=== PATIENT | female | born 1975 | race Caucasian/White ===

== ENCOUNTER 2020-01-23 15:23 | Emergency (ER) | payer MEDICAID, SELFPAY ==
--- NOTE | ~2020-01-23 | CT_ITS ---
EXAMINATION: CTA chest PE protocol EXAM DATE: 01/23/2020 18:12 INDICATION: Shortness of breath, elevated d-dimer. Chest pain. TECHNIQUE: Spiral CTA of the chest (pulmonary arteries) was performed with 100 cc Omnipaque 350 intr avenous contrast injection. Images were acquired during the pulmonary arterial phase. Coronal maxi mum intensity projection 3D-reconstructions were created by the technologist on dedicated workstation . Axial, coronal and sagittal reformatted images were reviewed. The dose-length product (DLP) for t his examination was 451.72 mGy-cm. The exposure was tailored according to patient size (auto mA exp osure control), and iterative reconstruction (ASIR) was used as additional dose reduction technique. There is no prior study for comparison. FINDINGS: Pulmonary arteries are well opacified and without intraluminal filling defects. No thora cic aortic dissection. The lungs are clear. There are no pleural or pericardial effusions. Trach eobronchial tree is patent. There is no mediastinal, hilar or axillary lymphadenopathy. There is no pneumothorax. Heart normal in size. There is mild coronary arterial calcification, arterial sc lerosis. Splenic granulomata. Breast implants. There is mild thoracic spondylosis without osteoblas tic or osteolytic lesions identified. IMPRESSION: 1. No pulmonary emboli or acute cardiopulmonary findings. Reviewed, dictated and finalized at location A.
--- NOTE | ~2020-01-23 | XR_ITS ---
EXAMINATION: XR chest 1V portable INDICATION: Shortness of breath and cough TECHNIQUE: Portable AP chest at 1618 hours COMPARISON: None available FINDINGS: The lungs are free of acute opacities. There is no pleural effusion or pneumothorax. The ca rdiomediastinal silhouette is normal. Punctate left upper quadrant calcifications likely reflect heal ed granulomatous disease of the spleen. IMPRESSION: 1. No acute cardiopulmonary abnormality. Reviewed, dictated and finalized at location A.
[2020-01-23 15:31] VITALS: BP 121/85; PULSE 102; RESP 20; TEMP 36.7; O2SAT 99
--- NOTE | 2020-01-23 16:48 | ECG_ITS ---
Measurements Intervals [place] Rate: 91 P: 44 TN: 145 QRS: 50 QRSD: 84 T: 50 QT: 340 QTc: 420 Interpretive Statements SINUS RHYTHM BASELINE ARTIFACT- III NORMAL ECG Electronically Signed On 01-23-2020 19:46:32 CDT by Donald Hawkins D.O.
[2020-01-23 16:49] LABS: Basophils Percent Auto 0.4 % (0.2-1.2); Eosinophils Absolute Auto 0.1 K/mm3 (0-0.3); Eosinophils Percent Auto 1.5 % (0-4.4); Hematocrit 41.3 % (37.0-47.0); Hemoglobin 13.9 g/dL (12.0-15.0); Immature Granulocyte Absolute 0.02 K/mm3 (0.00-0.031); Immature Granulocyte Percent A 0.4 % (0-0.5); Mean Corpuscular HGB Conc 33.7 g/dl (32-36); Mean Corpuscular Hemoglobin 30.4 pg (26-34); Mean Corpuscular Volume 90.4 fl (80-100); Mean Platelet Volume 9.4 fl (7.4-10.4); Monocytes Absolute Auto 0.6 K/mm3 (0.1-0.6); Monocytes Percent Auto 11.4 % (2.6-8.5); Neutrophils Absolute Auto 3.2 K/mm3 (1.3-6.7); Neutrophils Percent Auto 61.3 % (45.5-73.1); Platelet Count Result 177 k/mm3 (150-375); Red Blood Count 4.57 M/mm3 (4.2-5.4); Red Cell Distribution Width 12.8 % (11.5-14.5); White Blood Count 5.2 K/mm3 (4.5-10.0)
[2020-01-23 17:01] LABS: Lactic Acid Reflex 0.8 mmol/L (0.7-2.1)
[2020-01-23] MEDS: SODIUM CHLORIDE 0.9% IV 1,000 ML 999 ML IV CONT (17:07)
[2020-01-23 17:09] VITALS: BP 104/65; PULSE 88; RESP 16; O2SAT 95
[2020-01-23 17:21] LABS: D Dimer 2.59 ug/mL (<0.48)
--- NOTE | 2020-01-23 17:21 | ED.URI ---
HPI - URI/Sore Throat General Chief Complaint: Upper Respiratory Infection Stated Complaint: Headache, Fever, Cough Time Seen by Provider: 01/23/20 16:21 Source: patient Mode of arrival: ambulatory Limitations: no limitations History of Present Illness HPI Narrative: This is a 44 year old female that presents to the ER for cold symptoms x 5 days. Reports worsening over the last 3 days. Reports cough, congestion, shortness of breath. Also reports chest pain that is worse with cough. Denies fever or sore throat. Related Data Home Medications Medication Instructions Recorded Confirmed Celebrex 01/23/20 levothyroxine 01/23/20 Allergies Allergy/AdvReac Type Severity Reaction Status Date / Time morphine AdvReac Abdominal Verified 01/23/20 17:09 Pain Review of Systems Review of Systems: Narrative: CONSTITUTIONAL: Denies fever ENT: Reports rhinorrhea, congestion. Denies sore throat, or otalgia. CARDIOVASCULAR: Reports chest pain RESPIRATORY: Reports cough and dyspnea. All systems reviewed & are unremarkable except as noted in HPI and below PMFSH Past Medical History Medical History (Updated 01/23/20 @ 20:01 by Namrata Alaniz PA-C) History of hypothyroidism History of rheumatoid arthritis Social History Social History (Updated 01/23/20 @ 17:26 by Namrata Alaniz PA-C) Smoking status: Current every day smoker Gender identity (if verbalized by the patient): Female Exam Narrative: Exam Narrative: GENERAL: Well-appearing, well-nourished, and in no acute distress. HEAD: Normocephalic, atraumatic. EYES: EOMI. ENT: Nares clear, no rhinorrhea or epistaxis. Mucous membranes moist. Oropharynx without tonsillar hypertrophy exudate or other lesions. Bilateral TMs pearly wick non-bulging NECK: Supple. No adenopathy or masses. CHEST: Clear to auscultation. No respiratory distress. No wheezes rales or rhonchi HEART: Regular rate and rhythm. No murmur heard. Normal peripheral pulses. EXTREMITIES: Normal range of motion. No edema. SKIN: Warm, dry, no rash. NEURO: No focal deficits. Alert and oriented x3. PSYCH: Normal mood and affect Course Vital Signs Vital signs: Vital Signs Temperature 98.1 F 01/23/20 15:31 Pulse Rate 102 H 01/23/20 15:31 Respiratory Rate 20 01/23/20 15:31 Blood Pressure 121/85 01/23/20 15:31 Pulse Oximetry 99 01/23/20 15:31 Temperature 98.1 F 01/23/20 15:31 Pulse Rate 88 01/23/20 17:09 Respiratory Rate 16 01/23/20 17:09 Blood Pressure 104/65 01/23/20 17:09 Pulse Oximetry 95 01/23/20 17:09 MDM - URI/Sore Throat MDM Narrative Medical decision making narrative: Patient presents the emergency department for cold symptoms x5 days. Patient is afebrile and nontoxic-appearing. Oxygen saturation is normal on room air. CBC and metabolic panel without acute findings. Lactic acid is not elevated. EKG without concerning changes. Troponin is not elevated. Chest x-ray is clear. D-dimer was elevated so CTA of the chest obtained which was without evidence of pulmonary emboli. SARS-CoV-2 sent. Patient is stable and felt appropriate for further outpatient evaluation. She is to follow-up with primary care doctor. She was given warnings to return to the ER Lab Data Attestation: I reviewed the patient's lab results. Result diagrams: 01/23/20 16:40 01/23/20 16:40 Labs: Lab Results 01/23/20 01/23/20 01/23/20 Range/Units 16:39 16:40 16:40 WBC 5.2 (4.5-10.0) K/mm3 RBC 4.57 (4.2-5.4) M/mm3 Hgb 13.9 (12.0-15.0) g/dL Hct 41.3 (37.0-47.0) % MCV 90.4 (80-100) fl MCH 30.4 (26-34) pg MCHC 33.7 (32-36) g/dl RDW 12.8 (11.5-14.5) % Plt Count 177 (150-375) k/mm3 MPV 9.4 (7.4-10.4) fl Immature Gran % (Auto) 0.4 (0-0.5) % Neut % (Auto) 61.3 (45.5-73.1) % Lymph % (Auto) 25.0 (18.3-44.2) % Gilliam % (Auto) 11.4 H (2.6-8.5) % Eos % (Auto) 1.5 (0-4.4) % Baso % (Au
[2020-01-23 17:31] LABS: Blood Urea Nitrogen 19 mg/dL (7-17); CRP 2.1 mg/dL (<1.0); Carbon Dioxide 23 mmol/L (22-30); Chloride 108 mmol/L (98-107); Estimated CRCL calculation 91 ml/min; Estimated Glomerular Filt Rate > 60; Glucose 98 mg/dL (65-105); Sodium 137 mmol/L (137-145)
[2020-01-23 17:40] LABS: Troponin I < 0.012 ng/mL (0.000-0.034)
[2020-01-23 20:26] VITALS: BP 128/94; PULSE 74; RESP 13; TEMP 36.6; O2SAT 97
[2020-01-24 18:47] LABS: SARS-CoV-2 RNA PCR Negative
== END 2020-01-23 20:44 | disposition home or self-care (01) ==
PROVIDERS: Physician Assistant; Emergency Provider Emergency Medicine
DX: B34.9 Viral infection, unspecified (principal); Z20.828 Contact with and (suspected) exposure to other viral communicable diseases; E03.9 Hypothyroidism, unspecified; M06.9 Rheumatoid arthritis, unspecified
CPT/HCPCS: 36415; 71045; 71275; 80048; 83605; 84484; 85025; 85380; 86140; 87635; 93005; 96365; 99284; C9803; J0131; J7030; Q9967; U0003

== ENCOUNTER 2020-07-01 14:30 | Outpatient (CLI) | payer MEDICAID, SELFPAY ==
[2020-07-01 14:48] LABS: Basophils Percent Auto 0.4 % (0.2-1.2); Eosinophils Percent Auto 0.9 % (0-4.4); Hematocrit 41.6 % (37.0-47.0); Immature Granulocyte Absolute 0.05 K/mm3 (0.00-0.031); Immature Granulocyte Percent A 1.1 % (0-0.5); Lymphocytes Absolute Auto 0.63 K/mm3 (0.9-3.2); Lymphocytes Percent Auto 13.8 % (18.3-44.2); Mean Corpuscular HGB Conc 33.7 g/dl (32-36); Mean Corpuscular Hemoglobin 29.9 pg (26-34); Mean Corpuscular Volume 88.7 fl (80-100); Mean Platelet Volume 8.9 fl (7.4-10.4); Monocytes Absolute Auto 0.4 K/mm3 (0.1-0.6); Monocytes Percent Auto 9.4 % (2.6-8.5); Neutrophils Absolute Auto 3.4 K/mm3 (1.3-6.7); Neutrophils Percent Auto 74.4 % (45.5-73.1); Platelet Count Result 185 k/mm3 (150-375); Red Blood Count 4.69 M/mm3 (4.2-5.4); Red Cell Distribution Width 12.7 % (11.5-14.5); White Blood Count 4.6 K/mm3 (4.5-10.0)
[2020-07-01 16:18] LABS: Alanine Aminotransferase 43 U/L (4-35); Albumin Level 4.2 g/dL (3.5-5.1); Alkaline Phosphatase 155 U/L (38-126); Anion Gap 7 mmol/L (8-16); Aspartate Amino Transferase 49 U/L (14-36); Bilirubin,Total 0.5 mg/dL (0.2-1.3); Blood Urea Nitrogen 13 mg/dL (7-17); Calcium 8.9 mg/dL (8.4-10.2); Carbon Dioxide 27 mmol/L (22-30); Chloride 103 mmol/L (98-107); Estimated Glomerular Filt Rate > 60; Glucose 101 mg/dL (65-105); Potassium 4.2 mmol/L (3.4-5.0); Sodium 137 mmol/L (137-145)
== END 2020-07-01 14:31 | disposition home or self-care (01) ==
LOC: ANHLAB 14:33
PROVIDERS: Visit Provider Internal Medicine Hematology & Oncology
DX: D05.12 Intraductal carcinoma in situ of left breast (principal)
CPT/HCPCS: 36415; 80053; 85025

== ENCOUNTER 2020-08-14 10:59 | Emergency (ER) | payer MEDICAID, SELFPAY ==
[2020-08-14 11:09] VITALS: BP 118/97; PULSE 92; RESP 17; TEMP 36.1
--- NOTE | 2020-08-14 11:42 | ED.FEMALEGU ---
HPI - Female Genitourinary General Chief complaint: Urogenital-Female Stated complaint: poss kidney infection Time Seen by Provider: 08/14/20 11:42 Source: patient Mode of arrival: ambulatory Limitations: no limitations History of Present Illness HPI Narrative: Pedro Nam is a 44 yo female with a PMH with RA, lupus, hypothyroid, allergies, has right upper back pain that radiates to the side that she rates as an 810 is worsened since yesterday. She has history of urinary tract infections but states that she has had both sciatica and UTIs in the past this feels like neither. Patient has had some pain in back that is intermittent over the last 2 weeks Related Data Home Medications Medication Instructions Recorded Confirmed levothyroxine 125 mcg PO DAILY 08/14/20 08/14/20 montelukast 10 mg PO DAILY 08/14/20 08/14/20 Allergies Allergy/AdvReac Type Severity Reaction Status Date / Time morphine AdvReac Intermediate Abdominal Verified 08/14/20 12:38 Pain Review of Systems Review of Systems: Narrative: CONSTITUTIONAL: Denies fever, chills, sweats. EYES: Denies visual changes, redness, discharge. ENT: Denies rhinorrhea, congestion, sore throat, otalgia. CARDIOVASCULAR: Denies chest pain, palpitations, edema. RESPIRATORY: Denies dyspnea, wheezing, cough GASTROINTESTINAL: Has abdominal pain, right upper back pain that radiates to her abdomen, some nausea, no vomiting, diarrhea. GENITOURINARY: Denies dysuria, hematuria, abnormal discharge SKIN: Denies rash or itching. NEUROLOGIC: Denies numbness, or focal weakness. PSYCHIATRIC: Denies anxiety or depression. [facility] Past Medical History Medical History History of hypothyroidism History of rheumatoid arthritis Lupus Surgical History Surgical History History of cholecystectomy Family History Family History Other Hypertension Social History Social History Smoking status: Current every day smoker Gender identity (if verbalized by the patient): Female Comments At time of signature, I agree with nursing past medical, surgical, social and family history. There is no relevant family history pertinent to the presenting complaint. Exam Narrative: Exam Narrative: GENERAL: This is a well-nourished, well-developed patient, in moderate distress. HEAD: normocephalic, atraumatic. EYES: Sclera clear/white. Vision is grossly intact. EARS: External ears normal. Hearing grossly intact. NOSE: External nose normal without nasal discharge, nares without redness, no rhinorrhea. THROAT: Mucous membranes moist, NECK: Neck supple, non-tender CARDIOVASCULAR: Regular rate and rhythm without murmurs, gallops, or rubs. RESPIRATORY: Clear to auscultation. Breath sounds equal bilaterally. No wheezes, rales, or rhonchi. GASTROINTESTINAL: Abdomen soft, -tender, right upper back around to right quadrant, rates pain as an 8 out of 10 with palpation SKIN: warm, intact with no suspicious lesions or rash, good texture and turgor. NEURO: awake, alert, and oriented to person, place and time. There were no obvious focal neurologic abnormalities. Steady gait EXTREMITIES: Normal range of motion. BACK: Nontender without deformity Course Course Emergency Course: Patient comes to express care for evaluation for possible UTI has had right upper back pain that radiates around to her lower quadrant which is intensified since yesterday, no dysuria UA positive only for 1+ leukocyte esterase Based on symptoms and need for further evaluation patient transferred to [place] [facility] Vital Signs Vital signs: Vital Signs Temperature 97.0 F L 08/14/20 11:09 Pulse Rate 92 08/14/20 11:09 Respiratory Rate 17 08/14/20 11:09 Blood Pressure 118/97 H 08/14/20 11:09 Te
== END 2020-08-14 12:10 | disposition short-term general hospital (02) ==
LOC: EXPCOLL 11:03
PROVIDERS: Emergency Provider Nurse Practitioner; PCP Family Medicine
DX: R10.31 Right lower quadrant pain (principal); F17.200 Nicotine dependence, unspecified, uncomplicated; E03.9 Hypothyroidism, unspecified; M06.9 Rheumatoid arthritis, unspecified; M32.9 Systemic lupus erythematosus, unspecified
CPT/HCPCS: 81003; 99212; G0463

== ENCOUNTER 2020-08-14 12:34 | Emergency (ER) | payer MEDICAID, SELFPAY ==
--- NOTE | ~2020-08-14 | XR_ITS ---
XR chest 1V portable DATE: 08/14/2020 13:18 INDICATION: Bilateral mastectomy for breast cancer. Acid reflux. Right flank pain. TECHNIQUE: Portable AP view on August 14, 2020 at 1312 hours COMPARISON: 01/23/2020 portable AP chest 01/23/2020 CT pulmonary scan FINDINGS: Normal heart size. No hilar or mediastinal enlargement. No pulmonary infiltrate or consolid ation, pleural effusion or pulmonary vascular congestion or pneumothorax. IMPRESSION: No active cardiopulmonary disease Reviewed, dictated and finalized at location A. [employer] UTILITY ASSOCIATE
--- NOTE | ~2020-08-14 | CT_ITS ---
EXAMINATION: CT abdomen pelvis wo con DATE: 08/14/2020 15:16 INDICATION: Right flank pain TECHNIQUE: Computed tomography (CT) of the abdomen and pelvis was performed without intravenous contr ast. Automated exposure control and iterative reconstruction technique were employed. Exam dose: 537 .39 mGy-cm total exam DLP. COMPARISON: None. FINDINGS: There is minimal atelectasis at the lung bases. Normal heart size. No pericardial or pleural effusion. Status post cholecystectomy. This may account for mild prominence of the common bile duct; consider c orrelation with serum bilirubin level. No hepatic space-occupying mass lesion is evident. Numerous calcified splenic granulomas. No pancreat ic mass lesion or calcification. No pancreatic duct dilatation. No adrenal mass lesion. No renal mass lesion. No urinary tract calculus or hydroureteronephrosis. Normal caliber of the abdominal aorta. No intraperitoneal or retroperitoneal or pelvic mass lesion or adenopathy or ascites. The urinary bladder, uterus and adnexal areas are unremarkable. Normal appendix. Minimal sigmoid diverticulosis; no CT evidence of diverticulitis. No bowel obstructi on, bowel wall thickening, pneumatosis or intraperitoneal free air. No suspicious osteolytic or osteoblastic lesions. IMPRESSION: No urinary tract calculus or hydroureteronephrosis Minimal sigmoid diverticulosis; no CT evidence of diverticulitis Normal appendix Status post cholecystectomy, which likely accounts for mild prominence of the common bile duct Reviewed, dictated and finalized at Location A. Reviewed, dictated and finalized at location A. SHOVEL OPERATOR IMPRESSION: No urinary tract calculus or hydroureteronephrosis Minimal sigmoid diverticulosis; no CT evidence of diverticulitis Normal appendix Status post cholecystectomy, which likely accounts for mild prominence of the c ommon bile duct
[2020-08-14 12:35] VITALS: BP 138/90; PULSE 103; RESP 18; TEMP 36.7; O2SAT 100
[2020-08-14 13:02] LABS: Basophils Percent Auto 0.4 % (0.2-1.2); Eosinophils Absolute Auto 0.1 K/mm3 (0-0.3); Eosinophils Percent Auto 1.8 % (0-4.4); Hematocrit 41.7 % (37.0-47.0); Immature Granulocyte Absolute 0.05 K/mm3 (0.00-0.031); Immature Granulocyte Percent A 0.9 % (0-0.5); Lymphocytes Absolute Auto 1.43 K/mm3 (0.9-3.2); Lymphocytes Percent Auto 25.9 % (18.3-44.2); Mean Corpuscular HGB Conc 33.6 g/dl (32-36); Mean Corpuscular Hemoglobin 29.7 pg (26-34); Mean Corpuscular Volume 88.3 fl (80-100); Mean Platelet Volume 9.5 fl (7.4-10.4); Monocytes Absolute Auto 0.4 K/mm3 (0.1-0.6); Neutrophils Absolute Auto 3.5 K/mm3 (1.3-6.7); Platelet Count Result 200 k/mm3 (150-375); Red Blood Count 4.72 M/mm3 (4.2-5.4); Red Cell Distribution Width 13.3 % (11.5-14.5); White Blood Count 5.5 K/mm3 (4.5-10.0)
[2020-08-14 13:12] LABS: Add Urine Microscopic? YES; Appearance Urine Clear (Clear); Bacteria Urine Trace /hpf; Bilirubin Urine Negative (Negative); Blood Urine Negative (Negative); Color Urine Yellow (Yellow); Glucose Urine UA Negative (Negative); Ketones Urine Negative (Negative); Leukocyte Esterase Ur 1+ LEU/UL (Negative); Mucus Urine Rare /lpf; Nitrate Urine Negative (Negative); Protein Urine Negative (Negative); Specific Grav Ur 1.015 (1.001-1.035); Squamous Epithelial Cell Urine Moderate /hpf (Few); Transitional Epi Cells Urine Rare /hpf (None Seen); Urobilinogen Urine Negative mg/dL (<2.0); WBC Urine 0-3 /hpf
[2020-08-14] MEDS: SODIUM CHLORIDE 0.9% IV 1,000 ML 999 ML IV CONT (13:12)
[2020-08-14 13:15] LABS: Alanine Aminotransferase 26 U/L (4-35); Albumin Level 4.3 g/dL (3.5-5.1); Alkaline Phosphatase 125 U/L (38-126); Anion Gap 4 mmol/L (8-16); Aspartate Amino Transferase 38 U/L (14-36); Bilirubin,Total 0.5 mg/dL (0.2-1.3); Blood Urea Nitrogen 15 mg/dL (7-17); Calcium 9.2 mg/dL (8.4-10.2); Carbon Dioxide 26 mmol/L (22-30); Chloride 106 mmol/L (98-107); Estimated CRCL calculation 105 ml/min; Estimated Glomerular Filt Rate > 60; Glucose 96 mg/dL (65-105); Lipase 50 U/L (23-300); Potassium 4.2 mmol/L (3.4-5.0); Sodium 136 mmol/L (137-145)
--- NOTE | 2020-08-14 14:45 | ED.GENADULT ---
HPI - General Adult General Chief complaint: Back Pain/Injury <Prieto Padilla PA-C - Last Filed: 08/14/20 16:07> Stated complaint: ABD PAIN <Prieto Padilla PA-C - Last Filed: 08/14/20 16:07> Time Seen by Provider: 08/14/20 12:41 <Prieto Padilla PA-C - Last Filed: 08/14/20 16:07> Source: patient <Prieto Padilla PA-C - Last Filed: 08/14/20 16:07> Mode of arrival: ambulatory <Prieto Padilla PA-C - Last Filed: 08/14/20 16:07> Limitations: no limitations <Prieto Padilla PA-C - Last Filed: 08/14/20 16:07> History of Present Illness HPI narrative: Patient is a 44-year-old female who presents from urgent care with severe right CVA pain does not radiate denies injury or trauma does note history of urinary tract infection and urolithiasis. Patient denies any fever chills nausea vomiting or URI symptoms patient took anti-inflammatory medication this morning with minimal improvement which she takes for rheumatoid arthritis on arrival patient appears uncomfortable but in no distress <Prieto Padilla PA-C - Last Filed: 08/14/20 16:07> Related Data Home medications: Home Medications Medication Instructions Recorded Confirmed levothyroxine 125 mcg PO DAILY 08/14/20 08/14/20 montelukast 10 mg PO DAILY 08/14/20 08/14/20 <Prieto Padilla PA-C - Last Filed: 08/14/20 16:07> Allergies/adverse reactions: Allergies Allergy/AdvReac Type Severity Reaction Status Date / Time morphine AdvReac Intermediate Abdominal Verified 08/14/20 12:38 Pain <Prieto Padilla PA-C - Last Filed: 08/14/20 16:07> Review of Systems Review of Systems: All systems reviewed & are unremarkable except as noted in HPI and below <Prieto Padilla PA-C - Last Filed: 08/14/20 16:07> PMFSH Past Medical History Medical History: Medical History History of hypothyroidism History of rheumatoid arthritis Lupus <JOSE Salomon Last Filed: 08/14/20 16:07> Surgical History Surgical History: Surgical History History of cholecystectomy <Prieto Padilla PA-C - Last Filed: 08/14/20 16:07> Family History Family History: Family History Other Hypertension <Prieto Padilla PA-C - Last Filed: 08/14/20 16:07> Social History Social History: Social History Smoking status: Current every day smoker Gender identity (if verbalized by the patient): Female <Prieto Padilla PA-C - Last Filed: 08/14/20 16:07> Exam Narrative: Exam Narrative: GENERAL: Well-appearing, obese, uncomfortable and in no acute distress. HEAD: Normocephalic, atraumatic. EYES: PERRLA and EOMI. ENT: Nares clear, no rhinorrhea or epistaxis. Mucous membranes moist. NECK: Supple. No adenopathy or masses. No carotid bruits or JVD CHEST: Clear to auscultation. No respiratory distress. No wheezes rales or rhonchi HEART: Regular rate and rhythm. No murmur heard. Normal peripheral pulses. ABDOMEN: Soft, nontender, nondistended EXTREMITIES: Normal range of motion. No edema. Right CVA tenderness no deformities noted SKIN: Warm, dry, no rash. NEURO: No focal deficits. Alert and oriented x3. PSYCH: Normal mood and affect. <Prieto Padilla PA-C - Last Filed: 08/14/20 16:07> Course Course Emergency Course: Patient evaluated in the emergency department there was no urolithiasis seen on exam patient did have some blood in her urine which did raise concern for this also given the history of urolithiasis patient does not appear to have urinary tract infection at this time so she will be managed as musculoskeletal back pain with follow-up with her primary care patient was hydrated and given medications in the emergency department and will be managed outpatient w
[2020-08-14 16:10] VITALS: BP 130/88; PULSE 84; RESP 16; O2SAT 98
== END 2020-08-14 16:12 | disposition home or self-care (01) ==
PROVIDERS: Emergency Medicine Emergency Medical Services; Emergency Provider General Practice; PCP Family Medicine
DX: M54.5 Low back pain (principal); M06.9 Rheumatoid arthritis, unspecified; E03.9 Hypothyroidism, unspecified; F17.200 Nicotine dependence, unspecified, uncomplicated; Z87.440 Personal history of urinary (tract) infections; Z87.442 Personal history of urinary calculi
CPT/HCPCS: 36415; 71045; 74176; 80053; 81001; 81003; 81025; 83690; 85025; 96365; 96366; 99284; J0131; J7030

== ENCOUNTER 2021-01-05 13:24 | Emergency (ER) | payer MEDICAID, SELFPAY ==
[2021-01-05 13:32] VITALS: BP 122/89; PULSE 94; RESP 16; TEMP 36.6; O2SAT 98
--- NOTE | 2021-01-05 14:12 | ED.GENADULT ---
HPI - General Adult General Chief complaint: Upper Respiratory Infection Stated complaint: CONGESTION/SORE THROAT Time Seen by Provider: 01/05/21 14:12 Source: patient and RN notes reviewed Mode of arrival: ambulatory Limitations: no limitations History of Present Illness HPI narrative: 45-year-old female presents with complaints of sore and scratchy throat for 1 day. ?Pedro reports increasing symptoms of coughing and sore throat throughout the night.? No treatment.? Significant other has been ill for several days.? No high fevers, drooling, neck or throat swelling.? Pain is bilateral. ?Hurts to swallow. ?Exacerbation factors consist of eating and drinking. ?Intermittent rhinorrhea and nasal congestion. No voice change. ?No nausea, vomiting, or abdominal pain. ?Tolerating liquids well. ?Denies chills, dyspnea, difficulty swallowing, facial pain, foreign body sensation, and rash. ?LMP 2006 due to early menopause. ?Remains active. ?The patient reports she was diagnosed with COVID-19 in July 2020. ?The patient reports she is not waiting for the results of a COVID-19 lab test. ?The patient reports she does not have weakness or fatigue. Denies chest pain. ?The patient reports she does not have any loss of taste or smell and diarrhea. ?Denies recent traveling. Denies concerns for COVID-19 or exposures. ?At this time, the patient is not suspected of having COVID-19. Some parts of this dictation were generated by voice recognition software and may contain typographical and/or grammatical inaccuracies. Related Data Home Medications Medication Instructions Recorded Confirmed bupropion HCl 1 mg PO DAILY 01/05/21 01/05/21 celecoxib 1 mg PO BID 01/05/21 01/05/21 levothyroxine 1 mcg PO DAILY 01/05/21 01/05/21 montelukast 1 mg PO DAILY 01/05/21 01/05/21 Allergies Allergy/AdvReac Type Severity Reaction Status Date / Time morphine AdvReac Intermediate Abdominal Verified 01/05/21 13:39 Pain Review of Systems Review of Systems: Narrative: CONSTITUTIONAL: Denies fever, chills, sweats. EYES: Denies visual changes, redness, discharge. ENT: Denies otalgia. Complains of sore throat, rhinorrhea, congestion. CARDIOVASCULAR: Denies chest pain, palpitations, edema. RESPIRATORY: Denies dyspnea, wheezing, cough. GASTROINTESTINAL: Denies abdominal pain, nausea, vomiting, diarrhea. SKIN: Denies rash or itching. MUSCULOSKELETAL: Denies acute back pain, joint pain, or myalgia. NEUROLOGIC: Denies numbness or focal weakness. PSYCHIATRIC: Denies anxiety or depression. All systems reviewed & are unremarkable except as noted in HPI and below. [facility] Past Medical History Medical History (Updated 01/06/21 @ 00:00 by Rhiannon Santiago) Breast cancer in female remission-06/18 History of hypothyroidism History of rheumatoid arthritis Lupus Post-menopausal Surgical History Surgical History (Updated 01/05/21 @ 15:03 by BETTY Collado) History of bilateral mastectomy History of cholecystectomy History of reconstruction of both breasts Family History Family History (Updated 01/05/21 @ 15:03 by BETTY Collado) Father Heart disease Mother Asthma Hypertension Social History Social History (Updated 01/05/21 @ 15:04 by BETTY Collado) Years smoked: 14 Smoking status: Current every day smoker Tobacco type: cigarettes Second hand tobacco smoke exposure: Yes Alcohol intake: current Substance use: current Substance use type: marijuana Living arrangements: with family Occupation/Education: other Additional occupation/education comments: disable Gender identity (if verbalized by the patient): Female Sexual Orientation (if Verbalized by the Patient): Straight or Heterosexual Comments At time of signature, agree with the nurse past medical, surgical, social, and family history. There is no relevant family history pertinent to the presenting complaint. Exam Narrative: Exam Narrativ
== END 2021-01-05 14:26 | disposition home or self-care (01) ==
PROVIDERS: Emergency Provider Nurse Practitioner Family
DX: J02.9 Acute pharyngitis, unspecified (principal); F17.210 Nicotine dependence, cigarettes, uncomplicated; E03.9 Hypothyroidism, unspecified; M06.9 Rheumatoid arthritis, unspecified; Z85.3 Personal history of malignant neoplasm of breast; Z90.13 Acquired absence of bilateral breasts and nipples; M32.9 Systemic lupus erythematosus, unspecified
CPT/HCPCS: 87880; 99213; G0463

== ENCOUNTER 2021-03-03 09:35 | Outpatient (CLI) | payer MEDICAID, SELFPAY ==
--- NOTE | ~2021-03-03 | CT_ITS ---
EXAMINATION: CT diagnostic chest w con EXAM DATE: 03/03/2021 10:07 INDICATION: HX of breast cancer . TECHNIQUE: Spiral CT of the chest following intravenous injection of 75 mL Omnipaque 350. Axial, cor onal and sagittal images of the chest were reviewed. Coronal maximum intensity pixel images of chest reviewed. The dose-length product (DLP) for this examination was 244.33 mGy-cm. The exposure was t ailored according to patient size (auto mA exposure control), and iterative reconstruction (ASIR) was used as additional dose reduction technique. Comparison is made to prior examination from 01/23/2020. FINDINGS: The lungs are clear. There are no pleural or pericardial effusions. Tracheobronchial t ree is patent. There is no mediastinal, hilar or axillary lymphadenopathy. There is no pneumothor ax. Heart normal in size. There is mild coronary arterial calcification, arterial sclerosis. The re are cholecystectomy clips. Bilateral mastectomies, breast implants. There is mild thoracic spondyl osis without osteoblastic or osteolytic lesions identified. IMPRESSION: No evidence of metastatic disease. Reviewed, dictated and finalized at location B.
== END 2021-03-03 09:36 | disposition home or self-care (01) ==
PROVIDERS: PCP Nurse Practitioner Adult Health; Visit Provider Internal Medicine Hematology & Oncology
DX: Z85.3 Personal history of malignant neoplasm of breast (principal); Z90.13 Acquired absence of bilateral breasts and nipples; M47.814 Spondylosis without myelopathy or radiculopathy, thoracic region
CPT/HCPCS: 71260; Q9967

== ENCOUNTER 2021-07-06 09:13 | Emergency (ER) | payer MEDICAID, SELFPAY ==
--- NOTE | ~2021-07-06 | XR_ITS ---
XR chest 1V portable DATE: 07/06/2021 12:56 INDICATION: Frontal chest pain, radiating to back. Cough, congestion, fatigue. TECHNIQUE: Portable upright AP chest on 07/06/2019 at 1251 hours COMPARISON: 03/03/2021 CT chest August 14, 2020 portable AP chest FINDINGS: Normal heart size. No hilar or mediastinal enlargement. No pulmonary infiltrate or consolid ation, pleural effusion or pulmonary vascular congestion or pneumothorax. Diffuse osteopenia. IMPRESSION: No active cardiopulmonary disease Reviewed, dictated and finalized at [facility] Reviewed, dictated and finalized at [facility]. KNITTER
--- NOTE | ~2021-07-06 | CT_ITS ---
EXAMINATION: CTA chest PE protocol DATE: 07/06/2021 13:51 INDICATION: Left chest pain. TECHNIQUE: Computed tomography angiography (CTA) of the chest was performed with 100 mL Omnipaque-350 intravenous contrast timed to evaluate the pulmonary arteries. Coronal maximum intensity projection 3D-reconstructions were created by the technologist. Automated exposure control and iterative reconst ruction technique were employed. The dose-length product was 378.35 mGy-cm. COMPARISON: Chest CT 03/03/2021 FINDINGS: The lungs demonstrate mild atelectasis. No pleural effusion. Calcified mediastinal lymph no angelita are consistent with old granulomatous disease. Breast implants are noted. The heart size is yareil l. There are coronary artery calcifications. No pericardial effusion. Calcifications in the spleen ar e consistent with old granulomatous disease. There is mild thoracic spondylosis. IMPRESSION: 1. No pulmonary embolus. Reviewed, dictated and finalized at [facility]. [employer] IMPRESSION: 1. No pulmonary embolus.
[2021-07-06 09:29] VITALS: BP 144/104; PULSE 84; RESP 16; TEMP 36.6; O2SAT 100
--- NOTE | 2021-07-06 09:33 | ECG_ITS ---
Measurements Intervals [place] Rate: 80 P: 53 ND: 156 QRS: 53 QRSD: 89 T: 55 QT: 341 QTc: 394 Interpretive Statements SINUS RHYTHM BASELINE ARTIFACT- II, III, AVL NORMAL ECG Electronically Signed On 07-06-2021 13:00:29 [employer]IAISON by Donald Hawkins D.O.
[2021-07-06 12:40] VITALS: BP 155/98; PULSE 83; RESP 15; O2SAT 99
[2021-07-06 12:41] VITALS: O2SAT 100
--- NOTE | 2021-07-06 13:06 | ED.URI ---
HPI - URI/Sore Throat General Chief Complaint: Upper Respiratory Infection Stated Complaint: sob Time Seen by Provider: 07/06/21 12:37 Source: patient and RN notes reviewed Mode of arrival: ambulatory Limitations: no limitations History of Present Illness HPI Narrative: This is 45 year old female who presents for evaluation of viral symptoms. Patient reports she was exposed to someone that was COVID positive 5 days ago and patient developed symptoms 3 days ago. Her symptoms are body aches, chills, dry cough, shortness of breath and chest pain. She reports intermittent chest pressure for 2 days but today she feels it is worse. She has been vaccinated. She denies vomiting, abdominal pain or fever. She has not been tested for COVID yet. Related Data Home Medications Medication Instructions Recorded Confirmed bupropion HCl 1 mg PO DAILY 01/05/21 01/05/21 levothyroxine 1 mcg PO DAILY 01/05/21 01/05/21 montelukast 1 mg PO DAILY 01/05/21 01/05/21 Allergies Allergy/AdvReac Type Severity Reaction Status Date / Time morphine AdvReac Intermediate Abdominal Verified 07/06/21 12:43 Pain Review of Systems Review of Systems: All systems reviewed & are unremarkable except as noted in HPI and below Constitutional: Constitutional: Reports chills and Reports fatigue ENT: Reports nasal congestion Cardiovascular: Cardiovascular: Reports chest pain Respiratory: Respiratory: Reports cough and Reports dyspnea Gastrointestinal: Gastrointestinal: Denies abdominal pain, Reports nausea and Denies vomiting PMFSH Past Medical History Medical History Breast cancer in female remission-06/18 History of hypothyroidism History of rheumatoid arthritis Lupus Post-menopausal Surgical History Surgical History History of bilateral mastectomy History of cholecystectomy History of reconstruction of both breasts Family History Family History (Updated 01/05/21 @ 15:03 by BETTY Collado) Father Heart disease Mother Asthma Hypertension Social History Social History (Updated 01/05/21 @ 15:04 by BETTY Collado) Years smoked: 14 Smoking status: Current every day smoker Tobacco type: cigarettes Second hand tobacco smoke exposure: Yes Alcohol intake: current Substance use: current Substance use type: marijuana Additional occupation/education comments: disable Gender identity (if verbalized by the patient): Female Sexual Orientation (if Verbalized by the Patient): Straight or Heterosexual Exam Const: General: no acute distress and alert Orientation/consciousness: patient oriented x3 HENMT: Head: normocephalic and atraumatic Mouth: Yes Normal oral and palatal mucosa present, Yes lip normal, Yes oropharynx normal and Yes moist mucous membranes Eyes: EOM: EOMs intact bilaterally Chest: Chest palpation & inspection: normal inspection of the chest Resp: Effort & Inspection: normal respiratory effort and no retractions Auscultation: clear to auscultation bilaterally Cardio: Rate: regular rate Rhythm: regular rhythm Heart sounds: no murmurs GI: GI Palp: Yes Soft to palpation, No Tenderness to palpation present (GI) and No Guarding due to palpation present (GI) Auscultation: normal bowel sounds Skin: General skin exam: normal color Rashes: no rashes Neuro: General: patient oriented x3 and CN's II-XI intact bilaterally Extrem: Other: hand deformities due to rheumatoid arthritis. Psych: Mental Status: mental status grossly normal Course Reevaluation(s) Reevaluation #1: PAtient presented with atypical chest pain and covid symptoms. She has been found to be positive for covid. EKG , troponin and CT were negative. No PE, no ME.No pneumonia. She was able to walk from room 8 to [facility] bed 1 without hypoxia. Oxygen saturation remained at 100% with ambulation
[2021-07-06] MEDS: KETOROLAC 30 MG/ML VIAL (*BKC) IV PUSH (13:08)
[2021-07-06 13:09] VITALS: BP 119/62; PULSE 74
[2021-07-06 13:10] VITALS: BP 123/87; BP 129/85; PULSE 78; PULSE 89
[2021-07-06 13:26] LABS: Basophils Percent Auto 0.2 % (0.2-1.2); Eosinophils Absolute Auto 0.1 K/mm3 (0-0.3); Eosinophils Percent Auto 2.5 % (0-4.4); Hematocrit 35.6 % (37.0-47.0); Hemoglobin 11.9 g/dL (12.0-15.0); Immature Granulocyte Absolute 0.03 K/mm3 (0.00-0.031); Immature Granulocyte Percent A 0.6 % (0-0.5); Lymphocytes Absolute Auto 0.93 K/mm3 (0.9-3.2); Lymphocytes Percent Auto 18.1 % (18.3-44.2); Mean Corpuscular HGB Conc 33.4 g/dl (32-36); Mean Corpuscular Hemoglobin 29.3 pg (26-34); Mean Corpuscular Volume 87.7 fl (80-100); Mean Platelet Volume 9.4 fl (7.4-10.4); Monocytes Absolute Auto 0.5 K/mm3 (0.1-0.6); Monocytes Percent Auto 9.1 % (2.6-8.5); Neutrophils Absolute Auto 3.6 K/mm3 (1.3-6.7); Neutrophils Percent Auto 69.5 % (45.5-73.1); Platelet Count Result 170 k/mm3 (150-375); Red Blood Count 4.06 M/mm3 (4.2-5.4); Red Cell Distribution Width 12.5 % (11.5-14.5); White Blood Count 5.2 K/mm3 (4.5-10.0)
[2021-07-06 13:29] LABS: Prothrombin Time 12.9 Seconds (11.1-14.7)
[2021-07-06 13:30] LABS: EDCOVIDSCREEN Positive (Negative)
[2021-07-06 13:32] LABS: D Dimer 2.38 ug/mL (<0.48)
[2021-07-06 13:35] LABS: Alanine Aminotransferase 33 U/L (4-35); Alkaline Phosphatase 164 U/L (38-126); Anion Gap 7 mmol/L (8-16); Aspartate Amino Transferase 28 U/L (14-36); Bilirubin,Total 0.4 mg/dL (0.2-1.3); Blood Urea Nitrogen 16 mg/dL (7-17); Carbon Dioxide 24 mmol/L (22-30); Chloride 105 mmol/L (98-107); Estimated CRCL calculation 83 ml/min; Estimated Glomerular Filt Rate > 60; Glucose 96 mg/dL (65-110); Lipase 32 U/L (23-300); Potassium 4.3 mmol/L (3.4-5.0); Sodium 136 mmol/L (137-145)
[2021-07-06 13:47] LABS: Troponin I < 0.012 ng/mL (0.000-0.034)
== END 2021-07-06 16:24 | disposition home or self-care (01) ==
PROVIDERS: Emergency Provider General Practice; PCP Nurse Practitioner Adult Health
DX: U07.1 COVID-19 (principal); R07.9 Chest pain, unspecified; F17.210 Nicotine dependence, cigarettes, uncomplicated
CPT/HCPCS: 36415; 71045; 71275; 80053; 81025; 83690; 84484; 85025; 85380; 85610; 85730; 87426; 87804; 93005; 96374; 99284; C9803; J1885; Q9967

== ENCOUNTER 2022-04-27 17:31 | Emergency (ER) | payer OTHER, MEDICAID, SELFPAY ==
[2022-04-27 17:41] VITALS: BP 87/64; PULSE 93; RESP 16; TEMP 36.4; O2SAT 98
--- NOTE | 2022-04-27 17:56 | ED.GENADULT ---
HPI - General Adult General Chief complaint: Headache Stated complaint: ryan Time Seen by Provider: 04/27/22 17:57 Source: patient and RN notes reviewed Mode of arrival: ambulatory Limitations: no limitations History of Present Illness HPI narrative: 46-year-old female presents to the [facility] with complaints of a rash to the right posterior ear. Pain radiating into the posterior head right side only, following the trigeminal nerve into the right eye, right nasal area and right jaw. No pain on the left side. No facial drooping. Tongue is midline. Related Data Home Medications Medication Instructions Recorded Confirmed levothyroxine 125 mcg tablet 1 mcg PO DAILY 01/05/21 04/27/22 atorvastatin 20 mg tablet 20 mg DAILY 04/27/22 04/27/22 folic acid 1 mg tablet 1 mg DAILY 04/27/22 04/27/22 methotrexate sodium 2.5 mg tablet 2.5 mg WEEKLY 04/27/22 04/27/22 pantoprazole 40 mg tablet,delayed 40 mg PO DAILY 04/27/22 04/27/22 release sulfasalazine 500 mg 1,000 PO BID 04/27/22 tablet,delayed release Allergies Allergy/AdvReac Type Severity Reaction Status Date / Time morphine AdvReac Intermediate Abdominal Verified 04/27/22 17:51 Pain Review of Systems Review of Systems: All systems reviewed & are unremarkable except as noted in HPI and below Constitutional: Constitutional: Reports no additional constitutional complaints, Denies chills and Denies fever(s) Eyes: Eyes: Reports no additional eye complaints ENT: Reports as per HPI Cardiovascular: Cardiovascular: Reports no additional cardiovascular complaints Respiratory: Respiratory: Reports no additional respiratory complaints Gastrointestinal: Gastrointestinal: Reports no additional gastrointestinal complaints Musculoskeletal: Musculoskeletal: Reports no additional musculoskeletal complaints Integumentary/Breasts: Skin/Breast: Reports as per HPI Neurologic: Reports system reviewed and no additional complaints, except as documented Psychiatric: Psychiatric: Reports no additional psychiatric complaints Allergic/Immunologic: Allergic/Immunologic: Reports no additional allergic/immunologic complaints [facility] Past Medical History Medical History Breast cancer in female remission-06/18 History of hypothyroidism History of rheumatoid arthritis Lupus Post-menopausal Surgical History Surgical History History of bilateral mastectomy History of cholecystectomy History of reconstruction of both breasts Family History Family History Father Heart disease Mother Asthma Hypertension Social History Social History Years smoked: 14 Smoking status: Current every day smoker Tobacco type: cigarettes Second hand tobacco smoke exposure: Yes Alcohol intake: current Substance use: current Substance use type: marijuana Additional occupation/education comments: disable Gender identity (if verbalized by the patient): Female Sexual Orientation (if Verbalized by the Patient): Straight or Heterosexual Comments At the time of my signature, I reviewed and agree with the nursing past medical, surgical, social, and family history. There is no relevant family history pertinent to the patient complaint. Exam Const: General: healthy appearing, no acute distress, alert and well nourished Nutritional Appearance: well nourished Orientation/consciousness: patient oriented x3 Limitations: no limitations HENMT: Head: normal to inspection Ears: TM's normal bilaterally, EAC's normal, no periauricular adenopathy and other (Right posterior ear red blisters measuring 2.5 cm by 1 cm. ) Face/Nose/Sinus: Normal external nose present, Normal nares present and Normal nasal mucous membranes and turbinates present Face and sinus: normal facial exam
== END 2022-04-27 18:15 | disposition home or self-care (01) ==
PROVIDERS: Emergency Provider Nurse Practitioner; PCP Nurse Practitioner Adult Health
DX: B02.9 Zoster without complications (principal); F17.210 Nicotine dependence, cigarettes, uncomplicated; F12.90 Cannabis use, unspecified, uncomplicated; E03.9 Hypothyroidism, unspecified; M06.9 Rheumatoid arthritis, unspecified; Z85.3 Personal history of malignant neoplasm of breast; Z90.13 Acquired absence of bilateral breasts and nipples
CPT/HCPCS: 99213; G0463

== ENCOUNTER 2022-07-11 00:18 | Day surgery (SDC) | payer OTHER, SELFPAY ==
[2022-06-28 13:17] VITALS: BMI 36.8
[2022-07-11 06:35] VITALS: BP 130/89; PULSE 117; RESP 20; TEMP 36.4; O2SAT 97; BMI 42.0
[2022-07-11] MEDS: LACTATED RINGERS 1,000 ML 150 ML IV CONT (06:56)
--- NOTE | 2022-07-11 07:48 | WPDANESEPPF ---
Anes - Initial Pre Proc Eval Procedure: Operation Date: 07/11/22 08:00 Proposed Procedures p Esophagogastroduodenoscopy & Screening Colonoscopy - Juventino Guzman MD Date/Time: 07/11/22 07:48 Surgeon: Juventino Guzman MD Pre Op Diagnosis: GERD; neoplasm screening Patient Data Age: 46 Gender: F Height: 1.68 m Weight: 118.2 kg Last Vital Signs Temp 97.6 F 07/11/22 06:35 Pulse 117 H 07/11/22 06:35 Resp 20 07/11/22 06:35 BP 130/89 07/11/22 06:35 Pulse Ox 97 07/11/22 06:35 O2 Del Method Room Air 07/11/22 06:35 Allergies Allergy/AdvReac Type Severity Reaction Status Date / Time morphine AdvReac Intermediate Abdominal Verified 07/11/22 06:43 Pain Home Medications Medication Instructions Recorded Confirmed Type levothyroxine 125 mcg tablet 1 mcg PO DAILY 01/05/21 07/11/22 History folic acid 1 mg tablet 1 mg DAILY 04/27/22 07/11/22 History methotrexate sodium 2.5 mg tablet 2.5 mg WEEKLY 04/27/22 07/11/22 History pantoprazole 40 mg tablet,delayed 40 mg PO DAILY 04/27/22 07/11/22 History release sulfasalazine 500 mg 2,000 mg PO BID 04/27/22 07/11/22 History tablet,delayed release hydroxychloroquine 200 mg tablet 400 mg PO DAILY 06/28/22 07/11/22 History Patient hx anesthesia problems: none Family hx anesthesia problems: none Results Review: All pre-operative results and documents have been reviewed as part of the pre-operative evaluation. [facility] Past Medical History Medical History Breast cancer in female remission-06/18 History of hypothyroidism History of rheumatoid arthritis Lupus Post-menopausal Surgical History Surgical History History of bilateral mastectomy History of cholecystectomy History of reconstruction of both breasts Family History Family History Father Heart disease Mother Asthma Hypertension Social History Social History Years smoked: 34 Smoking status: Current every day smoker Tobacco type: cigarettes Second hand tobacco smoke exposure: Yes Alcohol intake: current Substance use: current Substance use type: marijuana Last use: 06-26-2022 Living arrangements: with family Additional occupation/education comments: disable Gender identity (if verbalized by the patient): Female Sexual Orientation (if Verbalized by the Patient): Straight or Heterosexual Spiritual care concerns: No Anes - Eval Final PreProcedure Day of Procedure 07/11/22 07:48 Patient weight: morbidly obese Heart: regular rate and rhythm Lungs: clear to auscultation Airway: Mallampati scale class II Neurological: alert and oriented Last oral intake: >/= 8 hours ASA classification: III Emergent: no Anesthetic plan: proceed Anesthesia type and monitoring: general GIVS and standard monitoring Results Review: All pre-operative results and documents have been reviewed as part of the pre-operative evaluation. Informed Consent: The patient's anesthetic plan and its attendant risks and benefits were discussed with the patient/family/POA. Questions were solicited and answers provided to the satisfaction of the patient/family/POA.
--- NOTE | 2022-07-11 08:02 | PM.HPGS ---
History of Present Illness History of Present Illness Consent: Risks, benefits, and alternatives have been discussed and questions answered. Patient agrees to proceed with procedure. Chief complaint: GERD; neoplasm screening Narrative: Pedro Nam is a 46 year old female with chronic gerd controlled with daily ppi, symptomatic without medication. Never had EGD, last colonoscopy 5 years ago. Review of Systems Constitutional: Constitutional: Denies headache(s) and Denies weakness Eyes: Eyes: Denies blurry vision ENT: Reports Normal hearing present, Denies headache(s) and Denies neck pain Cardiovascular: Cardiovascular: Denies chest pain and Denies dyspnea Respiratory: Respiratory: Denies dyspnea Gastrointestinal: Gastrointestinal: Reports no additional gastrointestinal complaints Genitourinary: Genitourinary: Denies dysuria Musculoskeletal: Musculoskeletal: Denies neck pain Integumentary/Breasts: Skin/Breast: Denies dry skin Neurologic: Reports Normal hearing present, Denies headache(s) and Denies weakness Psychiatric: Psychiatric: Denies anxiety Endocrine: Endocrine: Denies change in body appearance Hematologic/Lymphatic: Hematologic/Lymphatic: Denies easy bleeding Allergic/Immunologic: Allergic/Immunologic: Denies urticaria PMFSH Past Medical History Medical History (Updated 07/11/22 @ 08:03 by Juventino Guzman MD) Breast cancer in female remission-06/18 Colon cancer screening GERD (gastroesophageal reflux disease) History of hypothyroidism History of rheumatoid arthritis Lupus Post-menopausal Surgical History Surgical History History of bilateral mastectomy History of cholecystectomy History of reconstruction of both breasts Family History Family History Father Heart disease Mother Asthma Hypertension Social History Social History Years smoked: 34 Smoking status: Current every day smoker Tobacco type: cigarettes Second hand tobacco smoke exposure: Yes Alcohol intake: current Substance use: current Substance use type: marijuana Last use: 06-26-2022 Living arrangements: with family Additional occupation/education comments: disable Gender identity (if verbalized by the patient): Female Sexual Orientation (if Verbalized by the Patient): Straight or Heterosexual Spiritual care concerns: No Meds Home Medications and Allergies Home Medications Medication Instructions Recorded Confirmed Type levothyroxine 125 mcg tablet 1 mcg PO DAILY 01/05/21 07/11/22 History folic acid 1 mg tablet 1 mg DAILY 04/27/22 07/11/22 History methotrexate sodium 2.5 mg tablet 2.5 mg WEEKLY 04/27/22 07/11/22 History pantoprazole 40 mg tablet,delayed 40 mg PO DAILY 04/27/22 07/11/22 History release sulfasalazine 500 mg 2,000 mg PO BID 04/27/22 07/11/22 History tablet,delayed release hydroxychloroquine 200 mg tablet 400 mg PO DAILY 06/28/22 07/11/22 History Allergies Allergy/AdvReac Type Severity Reaction Status Date / Time morphine AdvReac Intermediate Abdominal Verified 07/11/22 06:43 Pain Vital Signs Vital Signs - 24 hr 07/11/22 06:35 Temperature 97.6 F Pulse Rate 117 H Respiratory Rate 20 Blood Pressure 130/89 Pulse Oximetry 97 Oxygen Delivery Room Air Exam Const: General: comfortable and no acute distress HENMT: Face/Nose/Sinus: Normal nares present Eyes: General: appearance normal, both eyes and all related structures Neck: Neck: no JVD Resp: Auscultation: clear to auscultation bilaterally Cardio: Rate: regular rate Rhythm: regular rhythm GI: Inspection: non-distended GI Palp: Yes Soft to palpation Skin: General skin exam: normal color Neuro: General: gait normal Speech: normal speech Extrem: General: normal to inspection Psych: Mental Stat
--- NOTE | 2022-07-11 08:23 | SUR.OPER ---
EGD: start 809, end 813 Colon: start 818, end 827
[2022-07-11 08:30] VITALS: BP 130/68; PULSE 86; RESP 20; O2SAT 100
[2022-07-11 08:40] VITALS: BP 120/91; PULSE 92; RESP 20; O2SAT 100
[2022-07-11 08:50] VITALS: BP 124/93; PULSE 83; RESP 19; O2SAT 100
== END 2022-07-11 09:00 | disposition home or self-care (01) ==
PROVIDERS: PCP Emergency Medicine; Visit Provider Internal Medicine Gastroenterology
PROC: 0DJ08ZZ Inspection of Upper Intestinal Tract, Via Natural or Artificial Opening Endoscopic (ICD-10-PCS; CPT 43235; principal; 2022-07-11 08:00)
DX: Z12.11 Encounter for screening for malignant neoplasm of colon (principal); D12.0 Benign neoplasm of cecum; K57.30 Diverticulosis of large intestine without perforation or abscess without bleeding; K64.8 Other hemorrhoids; K21.00 Gastro-esophageal reflux disease with esophagitis, without bleeding; K44.9 Diaphragmatic hernia without obstruction or gangrene; E03.9 Hypothyroidism, unspecified; M06.9 Rheumatoid arthritis, unspecified; M32.9 Systemic lupus erythematosus, unspecified; Z85.3 Personal history of malignant neoplasm of breast; F17.210 Nicotine dependence, cigarettes, uncomplicated; F12.90 Cannabis use, unspecified, uncomplicated; E66.01 Morbid (severe) obesity due to excess calories; Z68.41 Body mass index [BMI] 40.0-44.9, adult
CPT/HCPCS: 45385; 43239; 88305; J2704; J7120